=== PATIENT | female | born 1950 | race Caucasian/White ===

== ENCOUNTER 2019-04-12 07:04 | Inpatient (IN) ==
[2019-04-12] MEDS ORDERED: *HR* FentaNYL (PF) 100 MCG/2 ML VIAL ONE (07:30)
[2019-04-12] MEDS ORDERED: *HR* Midazolam HCl 2 MG/2 ML VIAL ONE (07:31)
[2019-04-12] MEDS ORDERED: *HR* Propofol 200 MG/20 ML VIAL IVP ONE ×2 (07:31→10:48)
[2019-04-12] MEDS ORDERED: *HR* Succinylcholine 200 MG/10 ML VIAL IVP ONE (07:33)
[2019-04-12] MEDS ORDERED: Lidocaine -MPF 2% 2 ML VIAL ONE (07:33)
--- NOTE | 2019-04-12 07:38 | Anesthesia Evaluation PreOp ---
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 LAST EVENING Anesthesia Exam REVIEWED Weight: 125 KG - BMI 47 NPO (# of Hours): 8 - HEENT Mallampati: III Teeth: Normal - Cardiac Rhythm: Regular - Pulmonary Breath Sounds: bilateral Clear Anesthesia Assess/Plan ASA Score: 3 Anesthetic Plan: General, Regional Nerve Block Monitoring Plan: Standard Monitors Recovery Plan: PACU
[2019-04-12] MEDS ORDERED: Acetaminophen IV 1,000 MG/100 ML INFUS..BTL IVPB ONE (07:40)
[2019-04-12] MEDS ORDERED: *HR* Promethazine 25 MG/ML VIAL IVP PRN (07:40)
[2019-04-12] MEDS ORDERED: *HR* HYDROmorphone (PF) 1 MG/ML SYRINGE IVP PRN (07:40)
[2019-04-12] MEDS ORDERED: *HR* Labetalol 20 MG/4 ML SYRINGE IVP PRN (07:40)
[2019-04-12] MEDS ORDERED: Albuterol 2.5 MG/3 ML NEBULIZER IH ONE ×2 (07:40→11:14)
[2019-04-12] MEDS ORDERED: *HR* OxyCODONE Immed Rel 5 MG TABLET PO PRN (07:40)
--- NOTE | 2019-04-12 07:44 | Discharge Summary ---
<Anel Tyler E - Last Filed: 04/12/19 07:43> Orders not resulted at time of discharge: Pending orders 04/12/19 01:00 XR post op reverse apex LT [XR] Routine Hemoglobin and Hematocrit [HEME] Routine 04/12/19 07:40 US anesthesia pain block [US] Routine Date of Encounter: 04/12/19 - Hospital Course Hospital course: Ms. Begum is a 68 year old female - Time Spent with Patient Total time spent providing and/or coordinating discharge services: - Discharge Medications Prescriptions: New Docusate Sodium [Colace] 100 mg PO BID 5 Days #10 capsule OxyCODONE Immed Rel [Roxicodone 5 MG] 5 mg PO Q6HR PRN 5 Days #20 tablet PRN Reason: Severe Pain Continued Alendronate Sodium [Fosamax] 70 mg PO WE Amlodipine Besylate 5 mg PO DAILY Enoxaparin [Lovenox] 30 mg SQ Q12H Furosemide [Lasix] 40 mg PO DAILY Gabapentin [Neurontin] 600 mg PO HS Irbesartan [Avapro] 300 mg PO DAILY Metoprolol [Lopressor] 25 mg PO BID Pantoprazole Sodium [Protonix] 40 mg PO DAILY PARoxetine HCl [Paroxetine HCl] 10 mg PO DAILY Potassium Chloride 20 meq PO BID Warfarin [Coumadin] 2 mg PO SUTUWEFRSA Warfarin [Coumadin] 3 mg PO MOTH Home Medications: Alendronate Sodium [Fosamax] 70 mg PO WE 04/12/19 [History] Amlodipine Besylate 5 mg PO DAILY 04/12/19 [History] Docusate Sodium [Colace] 100 mg PO BID 5 Days #10 capsule 04/12/19 [Rx] Enoxaparin [Lovenox] 30 mg SQ Q12H 04/12/19 [History] Furosemide [Lasix] 40 mg PO DAILY 04/12/19 [History] Gabapentin [Neurontin] 600 mg PO HS 04/12/19 [History] Irbesartan [Avapro] 300 mg PO DAILY 04/12/19 [History] Metoprolol [Lopressor] 25 mg PO BID 04/12/19 [History] OxyCODONE Immed Rel [Roxicodone 5 MG] 5 mg PO Q6HR PRN 5 Days #20 tablet 04/12/19 [Rx] PARoxetine HCl [Paroxetine HCl] 10 mg PO DAILY 04/12/19 [History] Pantoprazole Sodium [Protonix] 40 mg PO DAILY 04/12/19 [History] Potassium Chloride 20 meq PO BID 04/12/19 [History] Warfarin [Coumadin] 2 mg PO SUTUWEFRSA 04/12/19 [History] Warfarin [Coumadin] 3 mg PO MOTH 04/12/19 [History] Allergies/Adverse Reactions: Allergy/AdvReac Type Severity Reaction Status Date / Time Nickel AdvReac Redness of Verified 04/12/19 08:20 Skin terbinafine [From Lamisil] AdvReac Rash Verified 04/12/19 08:20 Primary care physician: Roly rAenas - Patient Status Disposition: Transfer SNF Condition: Good - Discharge Instructions Follow Up With: Roly Arenas DO [Primary Care Provider] - <Anel Retana - Last Filed: 04/15/19 12:58> - NOTES TO OUTPATIENT PROVIDER Notes to Outpatient Provider: Patient will need to follow up with coumadin clinic and will need repeat INR q 48-72 hrs until at goal. Orders not resulted at time of discharge: Pending orders 04/12/19 01:00 XR post op reverse apex LT [XR] Routine 04/12/19 07:40 US anesthesia pain block [US] Routine 04/12/19 10:29 Surgical Pathology [PTH] Routine 04/12/19 12:09 Hemoglobin and Hematocrit [HEME] Stat 04/13/19 04:00 Basic Metabolic Panel DAILY Hemoglobin and Hematocrit [HEME] DAILY 04/14/19 04:00 Basic Metabolic Panel DAILY Hemoglobin and Hematocrit [HEME] DAILY Date of Encounter: 04/15/19 Time of Encounter: 12:00 - Discharge Diagnosis (1) Status post reverse total arthroplasty of left shoulder Priority: Primary Status: Acute (2) Rotator cuff tear arthropathy of left shoulder Priority: Primary Status: Chronic (3) HTN (hypertension) Priority: Secondary Status: Chronic Qualifiers: Hypertension type: unspecified Qualified Code(s): I10 - Essential (primary) hypertension (4) History of DVT (deep vein thrombosis) Priority: Secondary Status: Chronic (5) Chronic anticoagulation Priority: Secondary Status: Chronic (6) Depression Priority: Secondary Status: Chronic Qualifiers: Depression Type: unspecified Qualified Code(s): F32.9 - Major depressive disorder, single episode, unspecified (7) POLI (acute kidney injury) Priority: Secondary Status: Resolved (8) Acute respiratory failure with hypoxemia Priority: Secondary Status: Acute - Hospital Course Hospital course: Ms. Begum is a 68 year old female status post left TSR reverse 04/12/19 with medical history of HTN, depression, obesity, h/o DVT on chronic anticoagulation with coumadin. In PACU she was noted to have a cough and given albuterol breathing treatment. She has been needing 2L O2 during admission and weaning off intermittently now. Can continue to use supplemental O2 as needed. Cough has persisted so hospitalist was consulted. CXR showed no evidence for pneumonia and CTA showed no evidence for PE. Dopplers negative for DVT in lower extremities. She developed POLI which resolved with fluid supplementation and holding lasix and lossartan. She will continue on lovenox while bridging back to coumadin until at therapeutic levels. Will need follow up with coumadin clinic and repeat INR every 48-72hrs until at therapeutic levels. She participated in therapy and is now stable for discharge to ECF. She will follow up in [facility] office next week for reevaluation. PCR - POD#3 s/p Left TSR reverse 04/12/19 Patient seen at bedside, without complaints. A&O x 3 Afebrile, vital signs stable. dressings c/d/i, she is neurovascularly intact to left upper extremity. Labs reviewed. H/H - 11.2/36.5 stable, asymptomatic Kidney function improved today after fluid bolus. Hospitalist did also hold lasix and losartan. Pain control: adequate Participating in PT. All questions and concerns addressed. Educated on use of incentive spirometer. Patient was noted to have a cough in PACU and was given albuterol breathing yecenia tment. currently using 2L O2 as needed. She continues to have a cough today, denies any sputum at this time. Have encouraged IS. CXR showed no pneumonia. Hospitalist was consulted and ordered further labs. doppler neg for DVt and CTA neg for PE. Encouraged ambulation and proper hydration. Patient educated on post-operative restrictions and post-operative care. DVT prophylaxis - Patient chronically on coumadin for h/o DVT. will need for lovenox bridge monitoring and follow up INR q 48-72hrs until back to goal Assessment and plan: Continue with postoperative care Discharge plan: ECF today - Time Spent with Patient Total time spent providing and/or coordinating discharge services: Date of admission: 04/12/19 12:35 Primary care physician: Roly Arenas Consults: 04/12/19 12:37 Consult to Occupational Therapy [CONS] Routine Comment: post shoulder surgery Reason for Consult: post shoulder surgery Does patient have active BEDREST order?: No Is patient medically & hemodynamically stable?: Yes Consult to Physical Therapy [CONS] Routine Comment: post shoulder surgery Reason for Consult: post shoulder surgery Does patient have active BEDREST order?: No Is patient medically & hemodynamically stable?: Yes Consult to Health Facilities Surveyor [CONS] Routine Reason for SW Consult: shoulder surgery RT Post Op Consult [CONS] Routine Discharging clinician: Joe Bueno Anticipated date of discharge: 04/15/19 Labs on day of discharge: Short CBC 04/15/19 04/14/19 04/14/19 Range/Units 03:17 18:42 14:17 WBC 8.4 7.9 8.6 (4.3-11.1) K/mcL Hgb 11.2 L 11.8 11.8 (11.5-15.4) g/dL Hct 36.5 39.7 40.1 (35.3-44.9) % Plt Count 317 334 341 (140-400) K/mcL Neutrophils # 5.2 6.1 (1.6-8.9) K/mcL BMP 04/15/19 Range/Units 03:17 Sodium 133 L (136-145) mEq/L Potassium 4.5 (3.5-5.1) mEq/L Chloride 102 (98-107) mEq/L Carbon Dioxide 27 (23-29) mEq/L BUN 14 (8-23) mg/dL Creatinine 0.89 (0.60-1.20) mg/dL Glucose 104 (70-105) mg/dL Calcium 8.3 L (8.6-10.3) mg/dL Cardiac Enzymes 04/14/19 Range/Units 14:17 Troponin I < 0.03 (< 0.04) ng/mL Urine 04/15/19 Range/Units 10:05 Urine Color Yellow (Yellow) Urine Clarity Clear (Clear) Urine pH 6.5 (5.0-8.0) pH Units Ur Specific Harshaw 1.009 L (1.010-1.025) Urine Protein Negative (Neg-Trace) mg/dL Urine Glucose (UA) Normal (Normal) mg/dL - Impressions Shoulder X-Ray 04/12/19 01:00 IMPRESSION: Stable postoperative changes are seen in the left shoulder with no complication. D/ / 04/12/2019 14:01:26 Odin Devries MD / katya Interpreting Provider: Odin Devries MD Chest X-Ray 04/14/19 11:37 IMPRESSION: 1. Mild perihilar interstitial edema. 2. Mild probable postsurgical left lung subsegmental atelectasis. 3. No evidence of pneumonia. D/ / 04/14/2019 12:52:11 Ashwin Trinidad MD / don Interpreting Provider: Ashwin Trinidad MD Chest CTA 04/15/19 09:19 IMPRESSION: 1. No findings of pulmonary embolism. 2. Mild bronchial wall thickening with suspected patchy bronchial secretions, suggesting bronchitis. Reactive airways disease and pulmonary vascular congestion could also account for the wall thickening. 3. Mosaic attenuation in the lungs potentially due to small airways disease or small vessels disease. 4. Mild cardiomegaly. D/ / Darrion Boyle MD / Darrion Boyle MD Interpreting Provider: Darrion Boyle MD - Patient Status Functional capacity at discharge: uses cane/walker Overall status at discharge: patient is progressing back to baseline - Diet and Activity Activity: as per physical therapy Diet: advance to your usual diet
--- NOTE | 2019-04-12 07:46 | History & Physical Report ---
Date of Encounter: 04/12/19 Time of Encounter: 07:46 24 Hour HP Update - Instructions Instructions: If the History and Physical is less than 30 days old and was completed prior to A.M. admission and or procedure and has NOT been updated on calendar day of procedure please complete this update prior to performing procedure. - Update Patient reports changes in Medical Condition: No Changes in examination, assessment, or condition: No Changes in Medication: No Preop tests/diagnostics Reviewed: Yes Surgery Remains Indicated: Yes Consent for Planned Operative Procedure(s) Verified: Yes - Pre-Operative Checklist Preoperative Checklist Indicated: No Prophylactic Antibiotic Ordered: Yes Is VTE Prophylaxis Indicated?: Yes
[2019-04-12] MEDS ORDERED: CeFAZolin Syr 3,000MG/30 ML 3,000 MG/30 ML SYRINGE IVPB ONE (07:54)
[2019-04-12] MEDS ORDERED: Ringers Solution, Lactated 1,000 ML IVC SCH ×2 (08:00→12:37)
[2019-04-12] MEDS ORDERED: Ketorolac 30 MG/ML VIAL ONE (08:19)
[2019-04-12] MEDS ORDERED: Ropivacaine/PF 0.5% 30 ML VIAL ONE (08:48)
[2019-04-12] MEDS ORDERED: Ethanol\\Acetic Acid\\Na Ace\\Ben 1,000 ML IRRIG.SOLN IR ONE (08:51)
--- NOTE | 2019-04-12 09:20 | Anesthesia Procedures ---
Date of Encounter: 04/12/19 Time of Encounter: 09:05 Procedures: Anesthesia - Nerve Block Procedure Date: 04/12/19 Time: 09:05 Allergies/Adv Reactions: Nickel, terbinafine Pre-op Diagnosis: Left shoulder rotator cuff arthropathy Surgical Procedure: Left total shoulder replacement, reverse Checklist: Correct Patient Identifier, Correct procedure, History checked Correct side: Left Blood Thinner: No Monitor Applied: EKG, BP, Pulse Oximetry Supplemental Oxygen via Nasal Cannula (L/min): 4 Sedation: Versed (mg): 2 Sedation: Fentanyl (mcg): 100 Indication: Post Op Analgesia Pre-op Neuro Deficits: No Block Type: Supraclavicular, Other (SCP, ICB) Catheter placed: No Sterile Technique: Yes Ultrasound used: Yes Anatomy identified: Yes Visual spread of Local: Yes Neuro Stimulation: No Nerve Stimulator Range: 0.2 - 0.4 mA Blood on Needle Aspiration: No Smooth Injection of Local: Yes Pain with Injection of Local: No Prep: Chlorhexadine Needle: 22 x 50 mm Stimuplex Local: Ropivacaine (Ropivicaine 0.5% 30ml supraclavicular, Ropivicaine 0.25% 15ml SCP/ICB), Other (Decadron 8mg) Volume (cc): 45 Number of Attempts: 1 Complications: None/effective block Vitals: Vital Signs Temperature 98.4 F 04/12/19 07:59 Pulse Rate 62 04/12/19 07:59 Respiratory Rate 17 04/12/19 07:59 Blood Pressure 145/85 04/12/19 07:59 O2 Sat by Pulse Oximetry 96 04/12/19 07:59 Temperature 98.4 F 04/12/19 07:59 Pulse Rate 73 04/12/19 09:09 Respiratory Rate 16 04/12/19 09:09 Blood Pressure 162/84 04/12/19 09:09 O2 Sat by Pulse Oximetry 95 04/12/19 09:09
[2019-04-12] MEDS ORDERED: *HR* Phenylephrine 10 MG/ML VIAL ONE (10:06)
[2019-04-12] MEDS ORDERED: Dexamethasone 4 MG/ML VIAL ONE (10:07)
[2019-04-12] MEDS ORDERED: Ondansetron 4 MG/2 ML VIAL ONE (10:07)
--- NOTE | 2019-04-12 10:34 | Orthopedic Operative Note ---
Date of procedure: 04/12/19 Pre-op diagnosis: Left shoulder cuff tear arthropathy Post-op diagnosis: same Procedure: Procedure: Total Shoulder Replacment Reverse, left Estimated blood loss: 50 cc Hardware: Metal and polyethylene replacement: Arthrex 24, +2 , 30 mm screw glenoid baseplate, 4 locking 5.5 screw, 39+4 glenosphere, 9 apex humeral stem, poly insert 3 Exam Under anesthesia: Full motion no instability Procedural Notes: Irreparable rotator cuff tear Operative procedure: The patient was brought to the operating room and placed on the operating room table. After general anesthesia was administered the operative shoulder was examined. Findings were noted. The patient was placed in the modified beachchair position. All pressure points were padded appropriately. And the head was stabilized in the neutral position. The operative extremity was prepped and draped in the sterile surgical fashion. The patient received IV antibiotics prior to skin incision. A standard deltopectoral approach was made to the operative shoulder. Incision was made to the skin and subcutaneous tissue,hemo stasis was obtained with Bovie cautery. Using careful blunt dissection the cephalic vein was identified and mobilized medially. The deltopectoral interval was developed and the clavipectoral fascia was incised. The subscap was released off the lesser tuberosity and tagged with #2 FiberWire suture subscap irreparable. The humerus was dislocated patient noted to have irreparable tear supraspinatus tendon, and the humeral cut was made along the anatomic neck. Anterior and posterior Bankart retractors were placed to expose the glenoid. The glenoid guide was s eated and the centering hole was made. It was reamed with the appropriate reamer. The 24, +2, 30 mm screw, baseplate was seated and secured with 4 locking 5.5 screw. The baseplate was irrigated and dried and the 39+4 Glenosphere was seated and secured with the Kee taper. The Kee taper was tested and found to be secure, glenosphere fixation was secondarily secured with the central screw. The humerus was redislocated and prepared with the diaphyseal reamers, followed by a broaching process up to the appropriate size 9 in the patient's anatomic version. The metaphyseal reamer was then utilized. Trial reduction found the shoulder to be relocatable. Trial components were removed and 9 stem was impacted in place in the patient's anatomic version. Trial reduction found the shoulder to be relocatable and stable with the appropriate 3. Trial component was removed and the real implant was seated and secured the shoulder was reduced. The shoulder had excellent motion and excelle nt stability and no evidence of dislocation. The deep tissue was irrigated with pulse irrigation. The PA close the shoulder. The deltopectoral interval was closed with a running #1 PDS suture, subcutaneous tissue was irrigated and closed with 0 PDS suture, the skin was closed with Dermabond. The patient was placed in a sterile dressing, abduction brace and extubated. The patient was then transferred to the recovery room in stable condition. Anesthesia: GETA Surgeon: Joe Bueno Was there an assistant community manager present: Yes Mechanism Inspector: Samm Reyes Estimated blood loss (cc): 50 Condition: stable Disposition: PACU
--- NOTE | 2019-04-12 11:44 | Anesthesia Evaluation Post Op ---
Date of Encounter: 04/12/19 Time of Encounter: 11:43 - Vital Signs Vital Signs: Vital Signs/O2 Sat, Most Current Temp Pulse Resp BP Pulse Ox 97.1 F L 80 13 123/58 95 04/12/19 11:04 04/12/19 11:24 04/12/19 11:24 04/12/19 11:24 04/12/19 11:24 - Lungs Lungs: Clear Ascult./Percussion - Airway Airway: Non-obstructed - Cardiovascular Regular Rate - Mental Status Mental Status: Alert & Oriented, Answers Appropriately - Pain Pain Scale: 0 Pain Scale used: Numeric (1 - 10) - Nausea Vomiting Nausea Vomiting: Not Present - Hydration Hydration: Ice chips, Has not voided - Discharge PostOp Status: Transfer Patient to floor
[2019-04-12] MEDS ORDERED: Temazepam 15 MG CAPSULE PO PRN (12:37)
[2019-04-12] MEDS ORDERED: MOM Conc 10 ML UD.LIQ PO PRN (12:37)
[2019-04-12] MEDS ORDERED: Sennosides 8.6 MG TABLET PO PRN (12:37)
[2019-04-12] MEDS ORDERED: Ondansetron 4 MG/2 ML VIAL IVP PRN (12:37)
[2019-04-12] MEDS ORDERED: traMADol 50 MG TABLET PO PRN (12:37)
[2019-04-12 12:45] LABS: Hematocrit 41.1 % (35.3-44.9); Hemoglobin 12.3 g/dL (11.5-15.4)
--- NOTE | 2019-04-12 12:47 | Physician Discharge Referral ---
Home Health/Hosp Referral Info Transfer to: Home Health Attending Provider: Dr. Bueno - Diagnosis (1) Status post reverse total arthroplasty of left shoulder Priority: Primary Status: Acute (2) Rotator cuff tear arthropathy of left shoulder Priority: Primary Status: Chronic (3) HTN (hypertension) Priority: Secondary Status: Chronic (4) History of DVT (deep vein thrombosis) Priority: Secondary Status: Chronic (5) Chronic anticoagulation Priority: Secondary Status: Chronic (6) Depression Priority: Secondary Status: Chronic - Respiratory Orders Smoking Cessation: Smoking cessation has been advised. For more information, call the [place] Tobacco Quit Line at 3-482-ISDK-NOW. - Diet/Nutrition Diet/Nutrition Orders: Regular - Activity Activity Orders: Up ad aubrey, Ambulate, Chair - Services Needed Following services are medically necessary services: Nursing, Home Health Aide, Physical Therapy, Occupational Therapy Home Care Orders: Opsite dressing, leave intact until first post-operative visit. Zipline/[place] in place, plan to remove at post-operative day #14-16. If dressing becomes >50% saturated, contact office, remove dressing and place appropriate dressing in its place. Do not allow for dressing to get wet. Shoulder Precautions x 6 weeks. Apply cold therapy wrap 3-6x/day for 20 minutes at a time. Encourage ambulation throughout the day. Use Incentive spirometer 10x/hour. Elevate affected extremity above heart as tolerated. NWB to affected upper extremity x 6 weeks. Will remove brace at first post-operative appointment. OK to remove during PT/OT and Home exercises. Will need repeat INR every 48-72 hrs until at goal. Follow up with coumadin clinic. - Transfer Medications Home Medications: Alendronate Sodium [Fosamax] 70 mg PO WE 04/12/19 [History] Amlodipine Besylate 5 mg PO DAILY 04/12/19 [History] Docusate Sodium [Colace] 100 mg PO BID 5 Days #10 capsule 04/12/19 [Rx] Enoxaparin [Lovenox] 30 mg SQ Q12H 04/12/19 [History] Furosemide [Lasix] 40 mg PO DAILY 04/12/19 [History] Gabapentin [Neurontin] 600 mg PO HS 04/12/19 [History] Irbesartan [Avapro] 300 mg PO DAILY 04/12/19 [History] Metoprolol [Lopressor] 25 mg PO BID 04/12/19 [History] OxyCODONE Immed Rel [Roxicodone 5 MG] 5 mg PO Q6HR PRN 5 Days #20 tablet 9 [Rx] PARoxetine HCl [Paroxetine HCl] 10 mg PO DAILY 04/12/19 [History] Pantoprazole Sodium [Protonix] 40 mg PO DAILY 04/12/19 [History] Potassium Chloride 20 meq PO BID 04/12/19 [History] Warfarin [Coumadin] 2 mg PO SUTUWEFRSA 04/12/19 [History] Warfarin [Coumadin] 3 mg PO MOTH 04/12/19 [History] Allergies/Adverse Reactions: Allergy/AdvReac Type Severity Reaction Status Date / Time Nickel AdvReac Redness of Verified 04/12/19 08:20 Skin terbinafine [From Lamisil] AdvReac Rash Verified 04/12/19 08:20 Certification: Further, I certify that my clinical findings support that this patient is homebound (i.e. absences from home require considerable and taxing effort and are for medical reasons or mu-ism services or infrequently or short duration when for other reasons) because: Homebound Reason: Post-surgery restriction and or conditions limit ability to leave home Attestation: My signature below is to certify that this patient is under my care and that I, or nurse practitioner, or a physician critical care physician assistant working with me, has a [id number] encounter with this patient.
[2019-04-12] MEDS: Furosemide 40 MG TABLET PO SCH (14:51)
[2019-04-12] MEDS: amLODIPine 5 MG TABLET PO SCH (14:51)
[2019-04-12] MEDS: *HR* Enoxaparin 120 MG/0.8 ML SYRINGE SQ SCH (17:38)
[2019-04-12] MEDS: ceFAZolin sodium 3,000 MG in 0.9 % Sodium Chloride 100 ML IVPB SCH (17:38)
[2019-04-12] MEDS ORDERED: *HR* Warfarin 3 MG TABLET PO SCH ×2 (18:00)
[2019-04-12] MEDS ORDERED: *HR* Enoxaparin 30 MG/0.3 ML SYRINGE SQ SCH ×2 (18:00)
[2019-04-12] MEDS: Gabapentin 300 MG CAPSULE PO SCH (20:11)
[2019-04-13] MEDS: ceFAZolin sodium 3,000 MG in 0.9 % Sodium Chloride 100 ML IVPB SCH (00:27)
[2019-04-13] MEDS: *HR* OxyCODONE/APAP 5/325 TABLET PO PRN ×2 (00:28→05:24)
[2019-04-13] MEDS: *HR* Enoxaparin 120 MG/0.8 ML SYRINGE SQ SCH ×2 (05:23→17:20)
--- NOTE | 2019-04-13 06:21 | Orthopedics Progress Note ---
Date of Encounter: 04/13/19 Time of Encounter: 06:21 Subjective Interval history: Patient was seen this morning doing well without complaints. Afebrile vital signs stable. Operative extremity: Neurovascularly intact Dressing clean dry and intact Calves nontender Assessment and plan: Continue with postoperative care Hematocrit 41 Objective Vital signs: Vital Signs Temp Pulse Resp BP Pulse Ox 04/13/19 03:28 98.3 F 87 18 119/67 93 04/12/19 23:23 97.7 F 61 18 113/70 94 04/12/19 19:40 97.7 F 72 18 123/61 93 04/12/19 16:02 98.5 F 88 16 113/72 93 04/12/19 15:35 97.5 F L 86 16 114/64 92 04/12/19 14:28 97.4 F L 81 16 128/74 93 04/12/19 13:15 97.2 F L 74 16 139/71 91 04/12/19 12:46 97.3 F L 74 17 121/63 94 04/12/19 12:15 97.5 F L 79 16 124/78 92 04/12/19 11:44 98.5 F 81 16 127/71 94 04/12/19 11:34 98.5 F 80 22 134/72 93 04/12/19 11:24 80 13 123/58 95 04/12/19 11:14 81 16 125/73 93 04/12/19 11:04 97.1 F L 84 16 116/69 92 04/12/19 09:39 69 18 142/75 96 04/12/19 09:25 65 16 155/69 94 04/12/19 09:09 73 16 162/84 95 04/12/19 09:05 73 16 152/84 97 04/12/19 07:59 98.4 F 62 17 145/85 96 Intake and Output 04/12/19 04/12/19 04/13/19 15:59 23:59 07:59 Intake Total 270 / 820 550 / 820 50 / 50 Output Total 50 / 500 450 / 500 0 / 0 Balance 220 / 320 100 / 320 50 / 50 Intake: IV Fluids 30 / 130 100 / 130 Ancef Syringe 3,000 MG/30 ML 3, 30 / 30 000 mg In 30 ml @ 200 mls/hr IVPB PREOP ONE Rx#:[id number] Ancef 3,000 MG In 0.9 % Sodium 100 / 100 Chloride 100 ML @ 200 mls/hr IVPB Q8HR SHWETA Rx#:[id number] Oral 240 / 690 450 / 690 50 / 50 Output: Urine 450 / 450 0 / 0 Estimated Blood Loss 50 / 50 Other: Meal Lunch Percent of Meal Consumed 75% # Voids 1 1 Weight 124.88 kg Patient Weight 04/13/19 23:59 Weight 124.88 kg - Labs CBC & BMP: 04/12/19 12:09 Consult Discharge Plan - Plan Referrals: Roly Arenas DO [Primary Care Provider] -
[2019-04-13 07:29] LABS: Hematocrit 38.3 % (35.3-44.9); Hemoglobin 11.5 g/dL (11.5-15.4)
[2019-04-13 07:50] LABS: Calcium 8.7 mg/dL (8.6-10.3); Potassium 4.6 mEq/L (3.5-5.1)
[2019-04-13] MEDS: *HR* OxyCODONE Immed Rel 5 MG TABLET PO PRN ×3 (07:51→19:53)
[2019-04-13] MEDS: Furosemide 40 MG TABLET PO SCH (07:51)
[2019-04-13] MEDS: amLODIPine 5 MG TABLET PO SCH (07:52)
[2019-04-13 07:55] LABS: INR 1.3
--- NOTE | 2019-04-13 13:21 | Physician Discharge Referral ---
ExtendedCare Referral Info Transfer To: [facility] Provider in Charge: Dr. Bueno - Diagnosis (1) Status post reverse total arthroplasty of left shoulder Priority: Primary Status: Acute (2) Rotator cuff tear arthropathy of left shoulder Priority: Primary Status: Chronic (3) HTN (hypertension) Priority: Secondary Status: Chronic (4) History of DVT (deep vein thrombosis) Priority: Secondary Status: Chronic (5) Chronic anticoagulation Priority: Secondary Status: Chronic (6) Depression Priority: Secondary Status: Chronic (7) Acute respiratory failure with hypoxemia Priority: Secondary Status: Acute (8) POLI (acute kidney injury) Priority: Secondary Status: Resolved Expected Duration of Placement: <30 days Prognosis: Good Aware of Diagnosis: Patient Aware of Prognosis: Patient - Transfer Medications Prescriptions: cephALEXin [Keflex] 500 mg PO TID 5 Days capsule Home Medications: Alendronate Sodium [Fosamax] 70 mg PO WE 04/12/19 [History] Amlodipine Besylate 5 mg PO DAILY 04/12/19 [History] Docusate Sodium [Colace] 100 mg PO BID 5 Days #10 capsule 04/12/19 [Rx] Enoxaparin [Lovenox] 30 mg SQ Q12H 04/12/19 [History] Furosemide [Lasix] 40 mg PO DAILY 04/12/19 [History] Gabapentin [Neurontin] 600 mg PO HS 04/12/19 [History] Irbesartan [Avapro] 300 mg PO DAILY 04/12/19 [History] Metoprolol [Lopressor] 25 mg PO BID 04/12/19 [History] OxyCODONE Immed Rel [Roxicodone 5 MG] 5 mg PO Q6HR PRN 5 Days #20 tablet 04/12/19 [Rx] PARoxetine HCl [Paroxetine HCl] 10 mg PO DAILY 04/12/19 [History] Pantoprazole Sodium [Protonix] 40 mg PO DAILY 04/12/19 [History] Potassium Chloride 20 meq PO BID 04/12/19 [History] Warfarin [Coumadin] 2 mg PO SUTUWEFRSA 04/12/19 [History] Warfarin [Coumadin] 3 mg PO MOTH 04/12/19 [History] cephALEXin [Keflex] 500 mg PO TID 5 Days capsule 04/15/19 [Rx] Allergies/Adverse Reactions: Allergy/AdvReac Type Severity Reaction Status Date / Time Nickel AdvReac Redness of Verified 04/12/19 08:20 Skin terbinafine [From Lamisil] AdvReac Rash Verified 04/12/19 08:20 - Respiratory Orders Oxygen / L per min (has needed 2L O2 intermittently, weaning down as tolerated Will need follow up with coumdin clinic and repeat INR q 48-72hrs until at goal POLI resolved after holding losartan and lasix will need to monitor kidney function if need to restart these medications) Smoking Cessation: Smoking cessation has been advised. For more information, call the [employer] Quit Line at 2-260-QEAN-NOW. - Lab Orders Lab Orders: Other (include drug levels w/frequency) (Will need to monitor INR and dose lovenox accordingly while bridging back to coumadin) - Ancillary Orders May use pressure relief devices daily prn, May go on NOE w/family/respon libertarian w/meds at nurse discretion PRN, May consult with Dentist, Traffic Engineering Technician, Network Communications Engineer PRN - Advance Directives Code Status: Full Code - Mobility Orders Chair, Ambulate - Rehabiliation Orders Rehab Potential: Good Rehab Orders: ROM Exercises, Evaluation for Physical Therapy, Evaluation for Occupational Therapy Other: Opsite dressing, leave intact until first post-operative visit. Zipline/Curtis in place, plan to remove at post-operative day #14-16. If dressing becomes >50% saturated, contact office, remove dressing and place appropriate dressing in its place. Do not allow for dressing to get wet. Shoulder Precautions x 6 weeks. Apply cold therapy wrap 3-6x/day for 20 minutes at a time. Encourage ambulation throughout the day. Use Incentive spirometer 10x/hour. Elevate affected extremity above heart as tolerated. NWB to affected upper extremity x 6 weeks. Will remove brace at first post-operative appointment. OK to remove during PT/OT and Home exercises. - Treatments Skin tear care topically daily PRN per policy - Diet Orders Regular CERTIFICATION: I certify that the transfer of the above named patient to an Extended Care Facility is necessary for the continuing treatment of the diagnosis listed. The above information is true and accurate reflection of patient's current condition. Confidential - Redisclosure prohibited without a patient's written consent.
--- NOTE | 2019-04-13 13:33 | Event Note ---
Date of Encounter: 04/13/19 Time of Encounter: 13:00 PCR - POD#1 s/p Left TSR reverse 04/12/19 Patient seen at bedside, without complaints. A&O x 3 Afebrile, vital signs stable. Labs reviewed. H/H - 11.5/38.3 stable, asymptomatic GFR 46 - she does have CKD but no recent repeat labs found in system to compare. will continue to monitor Pain control: increase in pain after therapy, awaiting her next dose of meds then will reassess Participating in PT. All questions and concerns addressed. Educated on use of incentive spirometer. Patient was noted to have a cough yesterday and was given albuterol breathing treatment. currently still on 2L O2 and will have nurse continue to wean down as tolerated. No new symptoms today. Encouraged ambulation and proper hydration. Patient educated on post-operative restrictions and post-operative care. DVT prophylaxis - Patient chronically on coumadin for h/o DVT. will need for lovenox bridge monitoring and follow up INR q 48-72hrs until back to goal Assessment and plan: Continue with postoperative care Discharge plan: recommended for ECF - accepted on
[2019-04-13] MEDS ORDERED: *HR* Warfarin 2 MG TABLET PO SCH (18:00)
[2019-04-13] MEDS: Gabapentin 300 MG CAPSULE PO SCH (19:53)
[2019-04-14 01:48] LABS: Hematocrit 39.3 % (35.3-44.9); Hemoglobin 11.5 g/dL (11.5-15.4)
[2019-04-14 02:07] LABS: Calcium 8.6 mg/dL (8.6-10.3); Potassium 4.5 mEq/L (3.5-5.1)
[2019-04-14] MEDS: *HR* OxyCODONE Immed Rel 5 MG TABLET PO PRN ×2 (03:06→10:39)
[2019-04-14] MEDS: *HR* Enoxaparin 120 MG/0.8 ML SYRINGE SQ SCH ×2 (05:41→19:06)
--- NOTE | 2019-04-14 06:39 | Orthopedics Progress Note ---
Date of Encounter: 04/14/19 Time of Encounter: 06:38 Subjective Interval history: Patient was seen this morning doing well without complaints. Afebrile vital signs stable. Operative extremity: Neurovascularly intact Dressing clean dry and intact Calves nontender Assessment and plan: Continue with postoperative care Hematocrit 39 Objective Vital signs: Vital Signs Temp Pulse Resp BP Pulse Ox 04/14/19 03:02 99.3 F 82 16 128/75 93 04/13/19 22:49 98.3 F 73 17 138/82 92 04/13/19 18:36 98.8 F 76 16 143/88 93 04/13/19 15:35 97.9 F 60 16 115/67 91 04/13/19 12:58 98.1 F 66 16 105/66 97 04/13/19 07:00 98.3 F 70 16 106/60 93 Intake and Output 04/13/19 04/13/19 04/14/19 15:59 23:59 07:59 Intake Total 850 / 1100 Balance 850 / 1100 Intake: Oral 850 / 1100 Other: Meal Lunch Percent of Meal Consumed 100% # Voids 1 1 1 Weight 124.6 kg Patient Weight 04/14/19 23:59 Weight 124.6 kg - Labs CBC & BMP: 04/14/19 01:26 04/14/19 01:26 Labs: Abnormal lab results PT 15.0 Seconds (9.4-12.1) H 04/13/19 06:56 Creatinine 1.26 mg/dL (0.60-1.20) H 04/14/19 01:26 Est GFR ( Amer) 51 (> 60) L 04/14/19 01:26 Est GFR (Non-Af Amer) 42 (> 60) L 04/14/19 01:26 Glucose 117 mg/dL (70-105) H 04/14/19 01:26 Consult Discharge Plan - Plan Referrals: Roly Arenas DO [Primary Care Provider] -
[2019-04-14] MEDS ORDERED: NON-FORMULARY MEDICATION 1 EACH EACH (Alendronate Sodium [Fosamax] 70 MG) PO SCH (08:31)
[2019-04-14] MEDS: amLODIPine 5 MG TABLET PO SCH (10:39)
[2019-04-14] MEDS: Furosemide 40 MG TABLET PO SCH (10:40)
[2019-04-14] MEDS ORDERED: 0.9 % Sodium Chloride 500 ML IVC ONE (11:38)
--- NOTE | 2019-04-14 12:27 | Event Note ---
Date of Encounter: 04/14/19 Time of Encounter: 11:20 PCR - POD#2 s/p Left TSR reverse 04/12/19 Patient seen at bedside, without complaints. A&O x 3 Afebrile, vital signs stable. Labs reviewed. H/H - 11.5/39.3 stable, asymptomatic GFR 46 --> 42 today - found preop GFR to be 50 on 04/09 per scanned in labs ([facility]) from [facility] Cr also increased from 1.17 to 1.26 - will start fluid bolus and continue maintenance fluids Pain control: increase in pain after therapy, awaiting her next dose of meds then will reassess Participating in PT. All questions and concerns addressed. Educated on use of incentive spirometer. Patient was noted to have a cough in PACU and was given albuterol breathing treatment. currently still on 2L O2 and has not been able to be weaned down off this. She does not normaliy require O2 at home. She continues to have a cough today, denies any sputum at this time. Have encouraged IS. Will order CXR to look for any pulmonary abnormalities. Will also consult hospitalist for input on management of the cough and kidney function Encouraged ambulation and proper hydration. Patient educated on post-operative restrictions and post-operative care. DVT prophylaxis - Patient chronically on coumadin for h/o DVT. will need for lovenox bridge monitoring and follow up INR q 48-72hrs until back to goal Assessment and plan: Continue with postoperative care Discharge plan: recommended for ECF - accepted on
--- NOTE | 2019-04-14 14:10 | Internal Medicine Consult Note ---
Date of Encounter: 04/14/19 Time of Encounter: 14:05 - Assessment and Plan (1) Acute respiratory failure with hypoxemia Current Visit: Yes Status: Acute Assessment and plan: Patient is currently on room air. Apparently was requiring 2 L since surgery. She is doing well on that. She does report a cough. Afebrile. We will get a chest x-ray. With cough, will get a CBC and make sure she has no leukocytosis. Check EKG and troponins. Check BNP. Check D dimers and if it is elevated we will get lower extremity Dopplers. Her INR is subtherapeutic at the moment. Patient is on therapeutic Lovenox while bridging with Coumadin. Encourage incentive spirometry. O2 support as needed. Nebs when necessary. (2) POLI (acute kidney injury) Current Visit: Yes Status: Acute Assessment and plan: I have held Lasix and losartan for now. She is ordered 500 mL bolus of LR by the primary service. We will continue maintenance fluids at 100 mL an hour after that. Check labs in the morning. (3) Status post reverse total arthroplasty of left shoulder Current Visit: Yes Status: Acute Assessment and plan: Management per primary (4) Depression Current Visit: Yes Status: Chronic Assessment and plan: Continue home meds Qualifiers: Depression Type: unspecified Qualified Code(s): F32.9 - Major depressive disorder, single episode, unspecified (5) HTN (hypertension) Current Visit: Yes Status: Chronic Assessment and plan: Hold Lasix and losartan for now. We will monitor blood pressure. Patient is on Norvasc and Lopressor as well. Qualifiers: Hypertension type: unspecified Qualified Code(s): I10 - Essential (primary) hypertension (6) History of DVT (deep vein thrombosis) Current Visit: Yes Status: Chronic Assessment and plan: INR is subtherapeutic. Coumadin has been resumed and is being placed with Lovenox - Time Spent With Patient Total time spent is greater than 50% in coordination of care (as documented) at patient's floor/unit and/or counseling patient: Internal Medicine - CN: HPI - Data of Consult Patient: new to practice Consult date: 04/14/19 Requesting Physician: Hanna Blanchard - Consult Narrative Reason for consult: POLI, cough, hypoxia History of present illness: Ms. Begum is a 68 year old female with history of HTN, previous DVTs on coumadin, depression, who is admitted electively under the orthopedic's service and is awaiting placement to inpatient rehab as she is status post left total shoulder replacement. Patient has been noted hypoxic and requiring 2 L NC and has a dry cough since the surgery. She is also noted to have abnormal kidney function that has worsened since yesterday. Creatinine was 1.17 yesterday and is up to 1.26 today. The urine went from 17-20. When I went to evaluate the patient she was on room air. She does report a dry cough. Afebrile. She was ordered 500 mL bolus of LR by the orthopedic service. Her hemoglobin has been stable since admission with a hemoglobin today of 11.5 which is the same as yesterday. Was 12.3 on 04/12. The patient is hemodynamically stable. She has a history of DVTs with the last one being in the early 1999. Her Coumadin has been on hold and her INR yesterday was 1.3. Currently she is on Lovenox therapeutic dose and is being bridged with Coumadin. She denies any chest pain. Denies any fevers, chills, headache, dizziness, nausea, vomiting, abdominal pain, diarrhea, constipation, urinary symptoms, or neurological symptoms. Past Med Surg Social Fam HX - Past Medical History Medical history: DVT, hypertension, RA Additional medical history: IBS, Psychiatric history: no psych history - Past Surgical History Surgical History: appendectomy, , cholecystectomy, knee replacement - Social History Smoking Status: Never smoker Alcohol use: none Drug use: none - Family History Mother Living Status: Still Living Review of systems: All systems reviewed are negative except as mentioned above Internal Medicine - CN: Meds Alendronate Sodium [Fosamax] 70 mg PO WE 04/12/19 [History] Amlodipine Besylate 5 mg PO DAILY 04/12/19 [History] Docusate Sodium [Colace] 100 mg PO BID 5 Days #10 capsule 04/12/19 [Rx] Enoxaparin [Lovenox] 30 mg SQ Q12H 04/12/19 [History] Furosemide [Lasix] 40 mg PO DAILY 04/12/19 [History] Gabapentin [Neurontin] 600 mg PO HS 04/12/19 [History] Irbesartan [Avapro] 300 mg PO DAILY 04/12/19 [History] Metoprolol [Lopressor] 25 mg PO BID 04/12/19 [History] OxyCODONE Immed Rel [Roxicodone 5 MG] 5 mg PO Q6HR PRN 5 Days #20 tablet 04/12/19 [Rx] PARoxetine HCl [Paroxetine HCl] 10 mg PO DAILY 04/12/19 [History] Pantoprazole Sodium [Protonix] 40 mg PO DAILY 04/12/19 [History] Potassium Chloride 20 meq PO BID 04/12/19 [History] Warfarin [Coumadin] 2 mg PO SUTUWEFRSA 04/12/19 [History] Warfarin [Coumadin] 3 mg PO MOTH 04/12/19 [History] Allergy/AdvReac Type Severity Reaction Status Date / Time Nickel AdvReac Redness of Verified 04/12/19 08:20 Skin terbinafine [From Lamisil] AdvReac Rash Verified 04/12/19 08:20 Hospitalist - CN: Exam - Constitutional Vitals: Temp Pulse Resp BP Pulse Ox 98.5 F 91 16 129/73 95 04/14/19 10:00 04/14/19 10:00 04/14/19 10:00 04/14/19 10:00 04/14/19 10:00 Exam: GEN: NAD HEENT: AT, NC, No cyanosis, oral mucosa is moist, No JVD Lymphatics: No lymphadenoapthy Eyes: Extrocular muscles intact, anicteric CVS:RRR. S1, S2, No m/r/g RESP: CTAB ABD: Soft, NT, ND, +BS EXT: No edema, No rashes, 2+ DP NEURO: Nonfocal, CN II-XII intact, No focal motor or sensory deficits Psych: Cooperative, Not anxious or depressed Internal Medicine - CN: Reslt - Labs CBC & Chem 7: 04/14/19 01:26 04/14/19 01:26 Labs: Short CBC 04/14/19 Range/Units 01:26 Hgb 11.5 (11.5-15.4) g/dL Hct 39.3 (35.3-44.9) % BMP 04/14/19 01:26 Sodium 136 Potassium 4.5 Chloride 103 Carbon Dioxide 28 BUN 20 Creatinine 1.26 H Glucose 117 H Calcium 8.6 - ABG Interpretation ABG results: PT/INR, D-dimer PT 15.0 Seconds (9.4-12.1) H 04/13/19 06:56 - Impressions Impressions Shoulder X-Ray 04/12/19 01:00 IMPRESSION: Stable postoperative changes are seen in the left shoulder with no complication. D/ / 04/12/2019 14:01:26 Odin Devries MD / katya Interpreting Provider: Odin Devries MD Chest X-Ray 04/14/19 11:37 IMPRESSION: 1. Mild perihilar interstitial edema. 2. Mild probable postsurgical left lung subsegmental atelectasis. 3. No evidence of pneumonia. D/ / 04/14/2019 12:52:11 Ashwin Trinidad MD / don Interpreting Provider: Ashwin Trinidad MD Consult Discharge Plan - Plan Referrals: Roly Arenas DO [Primary Care Provider] -
[2019-04-14] MEDS ORDERED: Ipratropium/Albuterol Neb 3 ML IH PRN (14:13)
[2019-04-14 14:32] LABS: Basophils # 0.1 K/mcL (0.0-0.2); Basophils % 0.7 %; Eosinophils # 0.1 K/mcL (0.0-0.6); Eosinophils % 1.6 %; Hematocrit 40.1 % (35.3-44.9); Hemoglobin 11.8 g/dL (11.5-15.4); Immature Granulocytes % 0.7 % (0-4); Lymphocytes # 1.4 K/mcL (0.6-4.6); Lymphocytes % 16.4 %; Mean Corpuscular HGB Conc 29.4 g/dL (31.6-35.5); Mean Corpuscular Volume 91.8 fL (83.0-100.0); Mean Platelet Volume 9.7 fL (9.4-12.4); Monocytes # 0.8 K/mcL (0.0-1.3); Monocytes % 9.6 %; Neutrophils # 6.1 K/mcL (1.6-8.9); Platelet Count 341 K/mcL (140-400); Red Blood Count 4.37 M/mcL (3.82-4.97); Red Cell Distribution Width 17.1 % (11.5-14.5); White Blood Count 8.6 K/mcL (4.3-11.1)
[2019-04-14] MEDS: 0.9 % Sodium Chloride 1,000 ML IVC SCH (16:10)
[2019-04-14] MEDS ORDERED: *HR* Warfarin 3 MG TABLET PO ONE (18:00)
[2019-04-14] MEDS ORDERED: Warfarin perPT PO PRN (18:00)
[2019-04-14] MEDS ORDERED: *HR* Heparin 5,000 UNIT/ML VIAL IVP PRN ×2 (18:24)
[2019-04-14] MEDS ORDERED: *HR* Heparin 5,000 UNIT/ML VIAL IVP ONE (18:24)
[2019-04-14] MEDS ORDERED: Heparin 25,000 UNIT/250 ML D5W 25,000 UNIT/250 ML IV.SOLN IVC SCH (18:30)
[2019-04-14 19:01] LABS: Hematocrit 39.7 % (35.3-44.9); Hemoglobin 11.8 g/dL (11.5-15.4); Mean Corpuscular HGB Conc 29.7 g/dL (31.6-35.5); Mean Corpuscular Hemoglobin 27.3 pg (28.0-33.3); Mean Corpuscular Volume 91.7 fL (83.0-100.0); Mean Platelet Volume 9.7 fL (9.4-12.4); Platelet Count 334 K/mcL (140-400); Red Blood Count 4.33 M/mcL (3.82-4.97); Red Cell Distribution Width 16.9 % (11.5-14.5); White Blood Count 7.9 K/mcL (4.3-11.1)
[2019-04-14 19:10] LABS: Heparin anti-factor XA UFH 0.96 IU/mL (0.30-0.70); INR 1.2; Prothrombin Time 13.9 Seconds (9.4-12.1)
[2019-04-14] MEDS: Gabapentin 300 MG CAPSULE PO SCH (21:16)
[2019-04-15] MEDS: *HR* OxyCODONE/APAP 5/325 TABLET PO PRN (03:06)
[2019-04-15 03:47] LABS: Basophils # 0.1 K/mcL (0.0-0.2); Basophils % 0.7 %; Eosinophils # 0.3 K/mcL (0.0-0.6); Eosinophils % 3.3 %; Hematocrit 36.5 % (35.3-44.9); Hemoglobin 11.2 g/dL (11.5-15.4); Immature Granulocytes % 0.4 % (0-4); Lymphocytes # 1.9 K/mcL (0.6-4.6); Lymphocytes % 22.9 %; Mean Corpuscular HGB Conc 30.7 g/dL (31.6-35.5); Mean Corpuscular Hemoglobin 27.2 pg (28.0-33.3); Mean Corpuscular Volume 88.6 fL (83.0-100.0); Monocytes # 0.9 K/mcL (0.0-1.3); Monocytes % 10.8 %; Neutrophils # 5.2 K/mcL (1.6-8.9); Platelet Count 317 K/mcL (140-400); Red Blood Count 4.12 M/mcL (3.82-4.97); Red Cell Distribution Width 16.7 % (11.5-14.5); Segmented Neutrophils % 61.9 %; White Blood Count 8.4 K/mcL (4.3-11.1)
[2019-04-15 03:56] LABS: BUN/Creatinine Ratio 16 (6-26); Blood Urea Nitrogen 14 mg/dL (8-23); Calcium 8.3 mg/dL (8.6-10.3); Carbon Dioxide 27 mEq/L (23-29); Chloride 102 mEq/L (98-107); Glucose 104 mg/dL (70-105); Osmolality,Calculated 277 (280-300); Potassium 4.5 mEq/L (3.5-5.1); Sodium 133 mEq/L (136-145); eGFR For African Americans > 60 (> 60); eGFR For Non-African Americans > 60 (> 60)
[2019-04-15 03:58] LABS: INR 1.5; Prothrombin Time 16.5 Seconds (9.4-12.1)
[2019-04-15] MEDS: 0.9 % Sodium Chloride 1,000 ML IVC SCH (04:08)
--- NOTE | 2019-04-15 06:34 | Orthopedics Progress Note ---
Date of Encounter: 04/15/19 Time of Encounter: 06:33 Subjective Interval history: Patient was seen this morning doing well without complaints. Afebrile vital signs stable. Operative extremity: Neurovascularly intact Dressing clean dry and intact Calves nontender Assessment and plan: Continue with postoperative care plan for dc today Objective Vital signs: Vital Signs Temp Pulse Resp BP Pulse Ox 04/15/19 03:24 99.8 F H 85 16 129/78 93 04/14/19 22:40 100.2 F H 91 17 123/79 93 04/14/19 19:49 98.3 F 84 16 112/59 96 04/14/19 16:18 98.2 F 92 18 118/70 96 04/14/19 10:00 98.5 F 91 16 129/73 95 04/14/19 06:45 98.8 F 87 18 126/78 94 Intake and Output 04/14/19 04/14/19 04/15/19 15:59 23:59 07:59 Intake Total 240 / 740 500 / 740 1216 / 1216 Output Total 350 / 350 Balance 240 / 390 150 / 390 1216 / 1216 Intake: IV Fluids 500 / 500 1116 / 1116 0.9 % Sodium Chloride 1,000 ML 1000 / 1000 @ 100 mls/hr IVC .Q10H [facility] Rx#: [id number] 0.9 % Sodium Chloride 500 ML @ 500 / 500 999 mls/hr IVC .Q31M ONE Rx#: [id number] Heparin 25,000 UNIT/250 ML D5W 116 / 116 25,000 unit In 250 ml @ 14 UNIT /KG/HR 17.444 mls/hr IVC . [id number] [facility] Rx#:[id number] Oral 240 / 240 100 / 100 Output: Urine 350 / 350 Other: Meal Lunch Percent of Meal Consumed 60% # Voids 1 1 1 Weight 124.5 kg Patient Weight 04/15/19 23:59 Weight 124.5 kg - Labs CBC & BMP: 04/15/19 03:17 04/15/19 03:17 Labs: Abnormal lab results Hgb 11.2 g/dL (11.5-15.4) L 04/15/19 03:17 MCH 27.2 pg (28.0-33.3) L 04/15/19 03:17 MCHC 30.7 g/dL (31.6-35.5) L 04/15/19 03:17 RDW 16.7 % (11.5-14.5) H 04/15/19 03:17 PT 16.5 Seconds (9.4-12.1) H 04/15/19 03:17 D-Dimer 543 ng/mLFEU (0-500) H 04/14/19 14:17 Heparin Anti-Xa, Unfract 1.50 IU/mL (0.30-0.70) H* 04/15/19 03:17 Sodium 133 mEq/L (136-145) L 04/15/19 03:17 Creatinine 1.26 mg/dL (0.60-1.20) H 04/14/19 01:26 Est GFR ( Amer) 51 (> 60) L 04/14/19 01:26 Est GFR (Non-Af Amer) 42 (> 60) L 04/14/19 01:26 Glucose 117 mg/dL (70-105) H 04/14/19 01:26 Calculated Osmolality 277 (280-300) L 04/15/19 03:17 Calcium 8.3 mg/dL (8.6-10.3) L 04/15/19 03:17 B-Natriuretic Peptide 153 pg/mL (Less than 100) H 04/14/19 14:17 Consult Discharge Plan - Plan Referrals: Roly Arenas DO [Primary Care Provider] -
[2019-04-15] MEDS: amLODIPine 5 MG TABLET PO SCH (08:30)
[2019-04-15] MEDS: *HR* OxyCODONE Immed Rel 5 MG TABLET PO PRN ×2 (08:33→14:05)
[2019-04-15] MEDS ORDERED: Isovue-370 500 ML BOTTLE IVP ONE (09:19)
--- NOTE | 2019-04-15 09:21 | Internal Med Progress Note ---
Hospitalist Progress Note - Encounter Date of Encounter: 04/15/19 Time of Encounter: 09:16 - Subjective Interval History: No acute events. Feels well. No longer hypoxic. Temp up to 100.2. - Exam Vitals: Temp Pulse Resp BP Pulse Ox 97.7 F 86 16 130/81 95 04/15/19 06:58 04/15/19 06:58 04/15/19 06:58 04/15/19 06:58 04/15/19 06:58 Exam: GEN: NAD CVS:RRR. S1, S2, No m/r/g RESP: CTAB ABD: Soft, NT, ND, +BS EXT: No edema, No rashes, 2+ DP NEURO: Nonfocal, CN II-XII intact, No focal motor or sensory deficits - Assessment and Plan (1) Acute respiratory failure with hypoxemia Current Visit: Yes Status: Acute Assessment and Plan: Patient is currently on room air. She is doing well on that. CXR looks with no signs of pneumonia. Had a temp up to 100.2. Has no leukocytosis. EKG and trops normal. D. Dimers came elevated and LE dopplers were negative. I think we need to rule out PE now that here kidney function normalized. Her INR is subtherapeutic at the moment. Patient is on heparin drip while bridging with Coumadin. Encourage incentive spirometry. O2 support as needed. Nebs when necessary. (2) POLI (acute kidney injury) Current Visit: Yes Status: Acute Assessment and Plan: Resolved (3) Status post reverse total arthroplasty of left shoulder Current Visit: Yes Status: Acute Assessment and Plan: Management per primary (4) Depression Current Visit: Yes Status: Chronic Assessment and Plan: Continue home meds (5) HTN (hypertension) Current Visit: Yes Status: Chronic Assessment and Plan: Hold Lasix and losartan for now. We will monitor blood pressure. Patient is on Norvasc and Lopressor as well. (6) History of DVT (deep vein thrombosis) Current Visit: Yes Status: Chronic Assessment and Plan: INR is subtherapeutic. Coumadin has been resumed and is being placed with Lovenox - Time Spent with Patient Total time spent is greater than 50% in coordination of care (as documented) at patient's floor/unit and/or counseling patient: Internal Medicine: Result - Labs CBC & Chem 7: 04/15/19 03:17 04/15/19 03:17 Labs: Short CBC 04/14/19 04/14/19 04/15/19 Range/Units 14:17 18:42 03:17 WBC 8.6 7.9 8.4 (4.3-11.1) K/mcL Hgb 11.8 11.8 11.2 L (11.5-15.4) g/dL Hct 40.1 39.7 36.5 (35.3-44.9) % Plt Count 341 334 317 (140-400) K/mcL Neutrophils # 6.1 5.2 (1.6-8.9) K/mcL BMP 04/15/19 03:17 Sodium 133 L Potassium 4.5 Chloride 102 Carbon Dioxide 27 BUN 14 Creatinine 0.89 Glucose 104 Calcium 8.3 L Cardiac Enzymes 04/14/19 Range/Units 14:17 Troponin I < 0.03 (< 0.04) ng/mL - ABG Interpretation ABG results: PT/INR, D-dimer PT 16.5 Seconds (9.4-12.1) H 04/15/19 03:17 D-Dimer 543 ng/mLFEU (0-500) H 04/14/19 14:17 - Impressions Impressions Chest X-Ray 04/14/19 11:37 IMPRESSION: 1. Mild perihilar interstitial edema. 2. Mild probable postsurgical left lung subsegmental atelectasis. 3. No evidence of pneumonia. D/ / 04/14/2019 12:52:11 Ashwin Trinidad MD / don Interpreting Provider: Ashwin Trinidad MD Consult Discharge Plan - Plan Referrals: Roly Arenas DO [Primary Care Provider] - (4) Depression Qualifiers: Depression Type: unspecified Qualified Code(s): F32.9 - Major depressive disorder, single episode, unspecified (5) HTN (hypertension) Qualifiers: Hypertension type: unspecified Qualified Code(s): I10 - Essential (primary) hypertension
[2019-04-15 10:30] LABS: Bilirubin,Urine Negative (Negative); Blood,Urine Negative (Negative); Clarity,Urine Clear (Clear); Color,Urine Yellow (Yellow); Glucose,Urine (UA) Normal (Normal); Ketones,Urine Negative (Negative); Leukocyte Esterase,Urine Negative (Negative); Nitrite,Urine Negative (Negative); PH,Urine 6.5 pH Units (5.0-8.0); Protein,Urine Negative (Neg-Trace); Specific Gravity,Urine 1.009 (1.010-1.025); Urobilinogen,Urine Normal (Normal)
--- NOTE | 2019-04-15 12:55 | Event Note ---
Date of Encounter: 04/15/19 Time of Encounter: 12:54 No PE on CTA. Mentioned possible bronchitis. With cough and temp rising to 100.2 last 12 hours. Will give Keflex for 5 days. Ok to d/c from my standpoint. will need Lovenox and Coumadin bridging.
--- NOTE | 2019-04-15 14:29 | Electrocardiograph Report ---
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
[2019-04-15 14:44] VITALS: BP 114/68
[2019-04-15] MEDS ORDERED: cephALEXin 500 MG CAPSULE PO SCH (15:00)
[2019-04-15] MEDS ORDERED: *HR* Warfarin 3 MG TABLET PO ONE (18:00)
== END 2019-04-15 15:25 | DRG 483 ==
LOC: SAMDAY 07:04 → SUATTDRO 12:35 → 3NENU 12:35
PROVIDERS: ADMIT Orthopaedic Surgery; ATTEND Internal Medicine